=== PATIENT | male | born 1980 | race Two or more races ===

== ENCOUNTER 2022-07-24 19:33 | Emergency (ER) | payer MEDICAID, OTHER ==
[2022-07-24] MEDS ORDERED: Ibuprofen 600 MG Tab PO ONE (19:52)
== END 2022-07-24 22:00 ==
LOC: MW.ED 19:33
DX: S43.002A Unspecified subluxation of left shoulder joint, initial encounter (principal); I10 Essential (primary) hypertension; Y04.0XXA Assault by unarmed brawl or fight, initial encounter
CPT/HCPCS: 73030; 73110; 73120; 99284; A9270